=== PATIENT | male | born 1970 | race Caucasian/White ===

== ENCOUNTER 2023-09-09 23:10 | Emergency (ER) | payer SELFPAY ==
[~2023-09-09] VITALS: Ht 182.9 cm; Wt 100.0 kg
[2023-09-09 23:15] VITALS: O2SAT 99
[2023-09-09] MEDS: LIDOCAINE HCL/EPINEPHRINE 1%-EPI 1:100,000 50 ML VIAL INFIL ONE (23:30)
[2023-09-09 23:38] VITALS: TEMP 98.4
[2023-09-09] MEDS: TETANUS, DIPHTHERIA, PERTUSSIS VAC/PF 0.5ML (>10YR OLD) IM ONE (23:50)
[2023-09-10 04:19] VITALS: BP 122/66; PULSE 64; RESP 18
== END 2023-09-10 04:36 | disposition home or self-care (01) ==
LOC: ER 23:24
DX: S01.01XA Laceration without foreign body of scalp, initial encounter (principal); F10.129 Alcohol abuse with intoxication, unspecified; R51.9 Headache, unspecified; Z00.00 Encounter for general adult medical examination without abnormal findings; W18.30XA Fall on same level, unspecified, initial encounter; Y93.89 Activity, other specified; Y92.89 Other specified places as the place of occurrence of the external cause; Y99.8 Other external cause status; Y90.9 Presence of alcohol in blood, level not specified
CPT/HCPCS: 12001; 90471; 90715; 99285